=== PATIENT | female | born 2000 | race Caucasian/White ===

== ENCOUNTER 2022-06-11 16:42 | Outpatient (CLI) | payer OTHER | END 2022-06-12 10:12 | disposition home or self-care (01) | LOC: OBS/DEL 16:42 | PROVIDERS: ATTEND Obstetrics & Gynecology | DX: O26.893 Other specified pregnancy related conditions, third trimester (principal); R04.0 Epistaxis; Z3A.37 37 weeks gestation of pregnancy ==

== ENCOUNTER 2022-06-24 00:05 | Inpatient (IN) | payer OTHER ==
[~2022-06-24] VITALS: Ht 160 cm; Wt 68.9 kg
[2022-06-24] MEDS ORDERED: PRENATAL TABLE1 EAC1 PO (00:41)
[2022-06-27] MEDS ORDERED: DIALYVITE 8001 EAC1 PO (06:40)
== END 2022-06-27 09:55 | disposition home or self-care (01) | DRG 768 ==
LOC: LDR 00:05 → OBS/DEL 00:05 → LDR 20:53 → OB/GYN 06-25 17:51
PROVIDERS: ADMIT Obstetrics & Gynecology; ATTEND Obstetrics & Gynecology
PROC: 0UQC7ZZ Repair Cervix, Via Natural or Artificial Opening (ICD-10-PCS; 2022-06-25)
PROC: 4A1HXCZ Monitoring of Products of Conception, Cardiac Rate, External Approach (ICD-10-PCS; 2022-06-25)
PROC: 10E0XZZ Delivery of Products of Conception, External Approach (ICD-10-PCS; principal; 2022-06-25 16:00)
DX: O71.3 Obstetric laceration of cervix (principal); Z37.0 Single live birth; O67.8 Other intrapartum hemorrhage; Z3A.39 39 weeks gestation of pregnancy; Z20.822 Contact with and (suspected) exposure to COVID-19